=== PATIENT | female | born 1960 | race Hispanic/Latino ===

== ENCOUNTER 2017-07-05 20:21 | Emergency (ER) | payer OTHER ==
[2017-07-05 22:27] LABS: HEMATOCRIT 40.5 % (36-48); LYMPHOCYTES % (AUTO) 17.3 % (21.0-51.0); MEAN CORPUSCULAR HGB CONC 34.5 g/dL (32.0-36.0); MEAN CORPUSCULAR VOLUME 87.1 fL (79-99); MONOCYTES % (AUTO) 6.3 % (3.0-13.0); NEUTROPHILS % (AUTO) 72.4 % (40.0-77.0); NUCLEATED RED BLOOD CELLS 0.1 % (0.0-0.19); PLATELET COUNT (AUTO) 227 K/uL (130-400); RED BLOOD CELL COUNT(AUTO) 4.65 MIL/uL (4.00-5.50); RED CELL DISTRIBUTION WIDTH 14.5 % (11.0-15.5)
[2017-07-05 22:34] LABS: CREATININE 0.7 mg/dL (0.5-1.5); POTASSIUM 3.7 mmol/L (3.5-5.1)
[2017-07-05 22:44] LABS: APPEARANCE,URINE CLEAR (CLEAR); COLOR,URINE YELLOW (YELLOW)
[2017-07-05 22:46] LABS: BILIRUBIN,URINE NEGATIVE (NEGATIVE); GLUCOSE, URINE (UA) NEGATIVE (NEGATIVE); KETONES,URINE NEGATIVE (NEGATIVE); LEUKOCYTE ESTERASE ,URINE NEGATIVE (NEGATIVE); NITRATE,URINE NEGATIVE (NEGATIVE); OCCULT BLOOD,URINE NEGATIVE (NEGATIVE); PH,URINE 6.5 (5.0-8.0); PROTEIN,URINE NEGATIVE (NEGATIVE); UROBILINOGEN,URINE 0.2 mg/dL (0.2-1.0)
[2017-07-05 22:48] LABS: CREATINE KINASE MB 0.6 ng/mL (0.5-3.6)
[2017-07-05] MEDS ORDERED: KETOROLAC TROMETHAMINE 30MG/ML ONE (23:08)
== END 2017-07-05 23:57 | disposition home or self-care (01) ==
LOC: EDH 20:21
DX: S20.219A Contusion of unspecified front wall of thorax, initial encounter (principal); J45.909 Unspecified asthma, uncomplicated; M19.90 Unspecified osteoarthritis, unspecified site; I10 Essential (primary) hypertension; Z88.8 Allergy status to other drugs, medicaments and biological substances; Z98.51 Tubal ligation status; Z90.710 Acquired absence of both cervix and uterus; Z98.890 Other specified postprocedural states; V49.49XA Driver injured in collision with other motor vehicles in traffic accident, initial encounter; Y93.89 Activity, other specified; Y92.89 Other specified places as the place of occurrence of the external cause; Y99.8 Other external cause status
CPT/HCPCS: 36415; 71046; 80048; 81003; 82550; 82553; 84484; 85025; 93005; 96374; 99285; J1885

== ENCOUNTER → 2018-10-12 | Outpatient (CLI) | payer OTHER | END | disposition home or self-care (01) | LOC: RAH 11:01 | PROVIDERS: ATTEND Family Medicine | DX: M16.12 Unilateral primary osteoarthritis, left hip (principal) | CPT/HCPCS: 73521 ==

== ENCOUNTER → 2022-08-22 | Outpatient (CLI) | payer OTHER | END | disposition home or self-care (01) | LOC: RAH 13:32 | PROVIDERS: ATTEND Internal Medicine Cardiovascular Disease | DX: I08.2 Rheumatic disorders of both aortic and tricuspid valves (principal); I10 Essential (primary) hypertension; E11.319 Type 2 diabetes mellitus with unspecified diabetic retinopathy without macular edema | CPT/HCPCS: 93306 ==

== ENCOUNTER → 2022-09-18 | Outpatient (CLI) | payer OTHER ==
[~2022-09-18] MED LIST: REGADENOSON 0.4 MG/5 ML PF SYG IVP SCH
== END | disposition home or self-care (01) ==
LOC: RAH 08:54
PROVIDERS: ATTEND Internal Medicine Cardiovascular Disease
DX: I10 Essential (primary) hypertension (principal); R06.02 Shortness of breath; E11.319 Type 2 diabetes mellitus with unspecified diabetic retinopathy without macular edema
CPT/HCPCS: 78452; 96374; 93017; J2785; A9500 ×2

== ENCOUNTER → 2022-10-13 | Outpatient (CLI) | payer OTHER ==
[~2022-10-13] VITALS: Ht 162.6 cm; Wt 93.3 kg
[~2022-10-13] MED LIST changes: +ALEN70TA80 PO; +AMIT25TA9 PO; +ATOR10TA69 PO; +CELE-84 PO; +FISH1CAP20 PO; +FOLI1 PO; +GLUC-172 PO; +LEVO5TAB13 PO; +LOSA100T59 PO; +METF-444 PO; +METH2.5T6 PO; +METO-391 PO; -REGADENOSON 0.4 MG/5 ML PF SYG IVP SCH
[2022-10-13 10:10] LABS: BASOPHILS % (AUTO) 0.6 % (0.0-5.0); EOSINOPHILS % (AUTO) 3.2 % (0.0-8.0); HEMATOCRIT 40.2 % (36-48); LYMPHOCYTES % (AUTO) 23.6 % (21.0-51.0); MEAN CORPUSCULAR HEMOGLOBIN 29.6 pg (27.0-33.0); MEAN CORPUSCULAR HGB CONC 32.6 g/dL (32.0-36.0); MONOCYTES % (AUTO) 10.6 % (3.0-13.0); NEUTROPHILS % (AUTO) 61.7 % (40.0-77.0); PLATELET COUNT (AUTO) 214 K/uL (130-400); RED BLOOD CELL COUNT(AUTO) 4.42 MIL/uL (4.00-5.50); RED CELL DISTRIBUTION WIDTH 13.9 % (11.0-15.5); WHITE BLOOD COUNT (AUTO) 6.2 K/uL (4.8-10.8)
[2022-10-13 10:12] LABS: APPEARANCE,URINE CLOUDY (CLEAR); BILIRUBIN,URINE NEGATIVE (NEGATIVE); COLOR,URINE YELLOW (YELLOW); GLUCOSE, URINE (UA) NEGATIVE (NEGATIVE); KETONES,URINE NEGATIVE (NEGATIVE); LEUKOCYTE ESTERASE ,URINE 500 Leu/uL (NEGATIVE); NITRATE,URINE NEGATIVE (NEGATIVE); OCCULT BLOOD,URINE NEGATIVE (NEGATIVE); PH,URINE 7.5 (5.0-8.0); PROTEIN,URINE 20 mg/dL (NEGATIVE); UROBILINOGEN,URINE 0.2 mg/dL (0.2-1.0)
[2022-10-13 10:27] LABS: INR 0.94 (0.85-1.15); PROTHROMBIN TIME 10.9 SEC (9.6-11.6)
[2022-10-13 10:28] LABS: BACTERIA,URINE FEW /HPF (None Seen); MUCUS,URINE RARE LPF (None Seen); PARTIAL THROMBOPLASTIN TIME 26.9 SEC (26.3-35.5); SQUAMOUS EPITHELIAL CELL,UR FEW /HPF (0-2); TRANSITIONAL EPI CELLS,URINE FEW /HPF (None Seen); WBC,URINE TNTC /HPF (0-1)
[2022-10-13 10:31] LABS: ALBUMIN 3.7 g/dL (3.5-5.0); CREATININE 0.9 mg/dL (0.5-1.5); CRP QUANTITATIVE 21.5 mg/L (0.00-9.0)
[2022-10-13 10:55] VITALS: BP 143/69; PULSE 74; RESP 19
== END | disposition home or self-care (01) ==
LOC: DAH 10:00 → EDSTATUS 17:00
PROVIDERS: ATTEND Student in an Organized Health Care Education/Training Program
DX: Z01.818 Encounter for other preprocedural examination (principal); Z20.822 Contact with and (suspected) exposure to COVID-19; M16.7 Other unilateral secondary osteoarthritis of hip; M25.551 Pain in right hip; M06.9 Rheumatoid arthritis, unspecified; R26.89 Other abnormalities of gait and mobility; Z79.01 Long term (current) use of anticoagulants; Z79.899 Other long term (current) drug therapy
CPT/HCPCS: 36415; 80048; 81001; 82040; 84134; 85025; 85610; 85730; 86140; 87088; 87426; 87641

== ENCOUNTER 2022-11-26 07:59 | Observation (INO) | payer OTHER ==
[2022-11-21 09:56] LABS: BASOPHILS # (AUTO) 0.06 K/uL (0.00-0.20); BASOPHILS % (AUTO) 0.7 % (0.0-5.0); EOSINOPHILS # (AUTO) 0.04 K/uL (0.00-0.70); EOSINOPHILS % (AUTO) 0.5 % (0.0-8.0); HEMATOCRIT 40.5 % (36-48); IMMATURE GRANULOCYTE ABSOLUTE 0.02 K/uL (0-1); LYMPHOCYTES # (AUTO) 2.5 K/uL (1.0-4.8); LYMPHOCYTES % (AUTO) 29.4 % (21.0-51.0); MEAN CORPUSCULAR HEMOGLOBIN 29.5 pg (27.0-33.0); MEAN CORPUSCULAR HGB CONC 31.9 g/dL (32.0-36.0); MEAN CORPUSCULAR VOLUME 92.5 fL (79-99); MONOCYTES # (AUTO) 0.5 K/uL (0.1-1.0); MONOCYTES % (AUTO) 6.2 % (3.0-13.0); NEUTROPHILS # (AUTO) 5.4 K/uL (1.8-7.7); PLATELET COUNT (AUTO) 251 K/uL (130-400); RED BLOOD CELL COUNT(AUTO) 4.38 MIL/uL (4.00-5.50); RED CELL DISTRIBUTION WIDTH 14.2 % (11.0-15.5); WHITE BLOOD COUNT (AUTO) 8.5 K/uL (4.8-10.8)
[2022-11-21 10:04] LABS: APPEARANCE,URINE CLEAR (CLEAR); BILIRUBIN,URINE NEGATIVE (NEGATIVE); COLOR,URINE COLORLESS (YELLOW); GLUCOSE, URINE (UA) NEGATIVE (NEGATIVE); KETONES,URINE NEGATIVE (NEGATIVE); LEUKOCYTE ESTERASE ,URINE 500 Leu/uL (NEGATIVE); NITRATE,URINE NEGATIVE (NEGATIVE); OCCULT BLOOD,URINE NEGATIVE (NEGATIVE); PH,URINE 6.5 (5.0-8.0); PROTEIN,URINE NEGATIVE (NEGATIVE); UROBILINOGEN,URINE 0.2 mg/dL (0.2-1.0)
[2022-11-21 10:08] LABS: INR 0.94 (0.85-1.15); PROTHROMBIN TIME 10.9 SEC (9.6-11.6)
[2022-11-21 10:09] LABS: PARTIAL THROMBOPLASTIN TIME 27.7 SEC (26.3-35.5)
[2022-11-21 10:22] VITALS: BP 155/73; PULSE 83; RESP 16
[2022-11-21 10:28] LABS: ADD UA MICROSCOPIC YES
[2022-11-21 10:32] LABS: BACTERIA,URINE RARE /HPF (None Seen); MUCUS,URINE RARE LPF (None Seen); OTHER CASTS, URINE 1 /LPF (None Seen); RBC,URINE 0-1 /HPF (0-1); SQUAMOUS EPITHELIAL CELL,UR RARE /HPF (0-2); TRANSITIONAL EPI CELLS,URINE RARE /HPF (None Seen); WBC,URINE 26-50 /HPF (0-1)
[2022-11-21 10:37] LABS: ALBUMIN 3.6 g/dL (3.5-5.0); CARBON DIOXIDE 30 mmol/L (21-32); CHLORIDE 102 mmol/L (101-111); CREATININE 0.8 mg/dL (0.5-1.5); GLOMERULAR FILTR. RATE CALC 84 mL/min (>90); GLUCOSE,RANDOM 102 mg/dL (70-105); POTASSIUM 4.1 mmol/L (3.5-5.1); SODIUM SERUM 138 mmol/L (136-145); UREA NITROGEN, BLOOD 16 mg/dL (7-18)
[2022-11-21 10:39] LABS: CRP QUANTITATIVE < 0.29 mg/L (0.00-9.0)
[~2022-11-26] VITALS: Ht 162.6 cm; Wt 91.6 kg
[2022-11-26] VITALS (31 sets, daily range): BP systolic 57–153; BP diastolic 24–89; PULSE 56–108; RESP 12–20; O2SAT 95–98
[~2022-11-26 07:59] MED LIST changes: +BIOT5000 PO; +CELE-125 PO; -CELE-84 PO; +GLUT500C7 PO; -LEVO5TAB13 PO; +MILK THISTLE PO; +MULT-952 PO; +SUPER B COMPLEX PO; +TURM500C13 PO; +VITA-395 PO; +[UNRECOGNIZED DRUG - OTHER] PO
[2022-11-26] MEDS ORDERED: 0.9%NACL 1000ML 1,000 ML IV ONE (08:28)
[2022-11-26] MEDS ORDERED: CEFAZOLIN SODIUM 2 GM VIAL ONE (08:28)
[2022-11-26] MEDS ORDERED: LIDOCAINE PF 100MG/5ML (2%) SYRINGE 5ML ONE (11:26)
[2022-11-26] MEDS ORDERED: PROPOFOL 10 MG/ML 20ML VIAL IV ONE (11:27)
[2022-11-26] MEDS ORDERED: ROCURONIUM 10MG/1ML SYR 10 MG/ML ML ONE (11:27)
[2022-11-26] MEDS ORDERED: MIDAZOLAM HCL 1 MG/ML 2ML VIAL ONE (11:27)
[2022-11-26] MEDS ORDERED: FENTANYL CITRATE PF 50 MCG/1 ML 2ML VIAL ONE ×2 (11:27→12:26)
[2022-11-26] MEDS ORDERED: KETAMINE 50MG/ML SYRINGE 50 MG/ML DISP.SYRIN ONE (11:27)
[2022-11-26] MEDS ORDERED: ROPIVACAINE 0.5% 5MG/ML 30ML IJ ONE (11:31)
[2022-11-26] MEDS ORDERED: CEFAZOLIN SODIUM 2 GM VIAL IVPB ONE (11:41)
[2022-11-26] MEDS ORDERED: TRANEXAMIC ACID 1000MG/10ML IV ONE (11:55)
[2022-11-26] MEDS ORDERED: TRANEXAMIC ACID 1000MG/10ML ONE (12:09)
[2022-11-26] MEDS ORDERED: PHENYLEPHRINE HCL 10 MG/ML 1ML VIAL IV ONE (12:43)
[2022-11-26] MEDS ORDERED: 0.9%NACL 10ML VIAL ONE (12:43)
[2022-11-26] MEDS ORDERED: DiphenhydrAMINE HCL 50 MG/ML VIAL IVP PRN (14:00)
[2022-11-26] MEDS: KETOROLAC 15MG/ML VIAL (15MG/ML) IV SCH ×2 (14:00→18:12)
[2022-11-26] MEDS ORDERED: POTASSIUM CHLORIDE 20MEQ/100ML 100 ML IV PRN (14:00)
[2022-11-26] MEDS ORDERED: FERROUS FUMARATE 324 MG TABLET PO PRN (14:00)
[2022-11-26] MEDS: GABAPENTIN 100 MG CAPSULE PO SCH ×2 (14:00→22:46)
[2022-11-26] MEDS ORDERED: TRAMADOL HCL 50 MG TABLET PO PRN (14:00)
[2022-11-26] MEDS ORDERED: CYCLOBENZAPRINE HCL 10 MG TABLET PO PRN (14:00)
[2022-11-26] MEDS ORDERED: ONDANSETRON 4MG INJ IVP PRN (14:00)
[2022-11-26] MEDS ORDERED: POTASSIUM CHLORIDE 10% ELIXIR 20 MEQ/15 ML UDCUP PO PRN (14:00)
[2022-11-26] MEDS ORDERED: KCL 20 MEQ ERTAB PO PRN (14:00)
[2022-11-26] MEDS ORDERED: CALCIUM CARB 500MG PO PRN (14:00)
[2022-11-26] MEDS ORDERED: ONDANSETRON 4MG INJ ONE (14:26)
[2022-11-26] MEDS ORDERED: MEPERIDINE-PF 25 MG/ML SYG ONE (14:26)
[2022-11-26] MEDS ORDERED: GLYCOPYRROLATE 0.2 MG/ML 5 ML VIAL ONE (15:24)
[2022-11-26] MEDS: CEFAZOLIN SODIUM 1 GM VIAL IVPB SCH (18:15)
[2022-11-26] MEDS: GLUTATHIONE 500 MG PO SCH (21:00)
[2022-11-26] MEDS: TURMERIC PO SCH (21:00)
[2022-11-26] MEDS ORDERED: SUPER B COMPLEX PO SCH (21:00)
[2022-11-26] MEDS: MILK THISTLE 1000 MG PO SCH (21:00)
[2022-11-26] MEDS: [UNRECOGNIZED DRUG - OTHER] PO SCH (21:00)
[2022-11-26] MEDS: [UNRECOGNIZED DRUG - OTHER] PO SCH (21:00)
[2022-11-26] MEDS: Biotin 5,000 MCG PO SCH (21:00)
[2022-11-26] MEDS ORDERED: DOCUSATE SODIUM 100 MG CAP PO SCH (21:00)
[2022-11-26] MEDS: DOCUSATE SODIUM 100 MG CAP PO SCH (22:46)
[2022-11-26] MEDS: METOPROLOL SUCCINATE 50 MG TAB.SR.24H PO SCH (22:47)
[2022-11-27] MEDS: HYDROCODONE/ACETAMINOPHEN 5/325 MG TAB PO PRN ×3 (01:13→20:57)
[2022-11-27] MEDS: CEFAZOLIN SODIUM 1 GM VIAL IVPB SCH (02:42)
[2022-11-27 03:50] LABS: HEMATOCRIT 32.4 % (36-48); MEAN CORPUSCULAR HEMOGLOBIN 29.9 pg (27.0-33.0); MEAN CORPUSCULAR HGB CONC 32.1 g/dL (32.0-36.0); MEAN CORPUSCULAR VOLUME 93.1 fL (79-99); RED BLOOD CELL COUNT(AUTO) 3.48 MIL/uL (4.00-5.50); RED CELL DISTRIBUTION WIDTH 14.6 % (11.0-15.5); WHITE BLOOD COUNT (AUTO) 13.1 K/uL (4.8-10.8)
[2022-11-27 03:59] LABS: CREATININE 0.9 mg/dL (0.5-1.5); POTASSIUM 3.7 mmol/L (3.5-5.1)
[2022-11-27] MEDS ORDERED: ALENDRONATE SODIUM 35 MG TAB PO SCH (06:30)
[2022-11-27] MEDS: KETOROLAC 15MG/ML VIAL (15MG/ML) IV SCH (06:36)
[2022-11-27 08:00] VITALS: BP 126/91; PULSE 114; RESP 20
[2022-11-27] MEDS: VITAMIN B COMPLEX 1 CAPSULE PO SCH (08:18)
[2022-11-27] MEDS: GABAPENTIN 100 MG CAPSULE PO SCH ×3 (08:18→20:56)
[2022-11-27] MEDS: DOCUSATE SODIUM 100 MG CAP PO SCH ×2 (08:18→20:56)
[2022-11-27] MEDS: LOSARTAN 100 MG TABLET PO SCH (08:18)
[2022-11-27] MEDS: METOPROLOL SUCCINATE 50 MG TAB.SR.24H PO SCH ×2 (08:19→20:57)
[2022-11-27] MEDS: ASPIRIN 325MG TAB PO SCH (08:19)
[2022-11-27] MEDS: POLYETHYLENE GLYCOL 3350 17 GM POWD.PACK PO SCH (08:19)
[2022-11-27] MEDS: 0.9%NACL 1000ML 1,000 ML IV SCH ×2 (08:20)
[2022-11-27 08:30] VITALS: O2SAT 95
[2022-11-27] MEDS: METFORMIN HCL 500 MG TABLET PO SCH (11:32)
[2022-11-27] MEDS: FOLIC ACID 1 MG TABLET PO SCH (11:32)
[2022-11-27 12:00] VITALS: BP 108/49; PULSE 89; RESP 18
[2022-11-27] MEDS ORDERED: AMITRIPTYLINE 25 MG TABLET PO SCH (12:00)
[2022-11-27] MEDS ORDERED: ATORVASTATIN 10 MG TABLET PO SCH (12:00)
[2022-11-27 16:00] VITALS: BP 137/65; PULSE 84; RESP 18
[2022-11-27] MEDS: Osteo Bi-Flex Caplet PO SCH (17:00)
[2022-11-27] MEDS: FISH OIL 1000 MG/CAP PO SCH (17:39)
[2022-11-27 19:05] VITALS: O2SAT 98
[2022-11-27 19:30] VITALS: BP 132/72; PULSE 102; RESP 18
[2022-11-27] MEDS: AMITRIPTYLINE 25 MG TABLET PO SCH (20:57)
[2022-11-27] MEDS: ATORVASTATIN 10 MG TABLET PO SCH (20:57)
[2022-11-27] MEDS: [UNRECOGNIZED DRUG - OTHER] PO SCH (21:00)
[2022-11-27] MEDS: MILK THISTLE 1000 MG PO SCH (21:00)
[2022-11-27] MEDS: GLUTATHIONE 500 MG PO SCH (21:00)
[2022-11-27] MEDS: TURMERIC PO SCH (21:00)
[2022-11-27] MEDS: Biotin 5,000 MCG PO SCH (21:00)
[2022-11-27] MEDS: [UNRECOGNIZED DRUG - OTHER] PO SCH (21:00)
[2022-11-28 00:30] VITALS: BP 146/72; PULSE 104; RESP 18
[2022-11-28] MEDS: KETOROLAC 15MG/ML VIAL (15MG/ML) IV PRN ×2 (00:35→10:01)
[2022-11-28 04:00] VITALS: BP 124/62; PULSE 90; RESP 18
[2022-11-28] MEDS: HYDROCODONE/ACETAMINOPHEN 5/325 MG TAB PO PRN ×2 (06:32→17:51)
[2022-11-28 08:00] VITALS: BP 134/57; PULSE 103; RESP 20
[2022-11-28] MEDS: ASPIRIN 325MG TAB PO SCH (10:01)
[2022-11-28] MEDS: DOCUSATE SODIUM 100 MG CAP PO SCH (10:01)
[2022-11-28] MEDS: VITAMIN B COMPLEX 1 CAPSULE PO SCH (10:01)
[2022-11-28] MEDS: GABAPENTIN 100 MG CAPSULE PO SCH (10:02)
[2022-11-28] MEDS: METOPROLOL SUCCINATE 50 MG TAB.SR.24H PO SCH (10:02)
[2022-11-28] MEDS: LOSARTAN 100 MG TABLET PO SCH (10:02)
[2022-11-28] MEDS: POLYETHYLENE GLYCOL 3350 17 GM POWD.PACK PO SCH (10:02)
[2022-11-28 11:30] VITALS: BP 94/37; PULSE 89; RESP 18
[2022-11-28 12:00] VITALS: BP 108/67; PULSE 112
[2022-11-28] MEDS: AMITRIPTYLINE 25 MG TABLET PO SCH (12:52)
[2022-11-28] MEDS: FOLIC ACID 1 MG TABLET PO SCH (12:54)
[2022-11-28] MEDS: ATORVASTATIN 10 MG TABLET PO SCH (12:55)
[2022-11-28] MEDS: METFORMIN HCL 500 MG TABLET PO SCH (12:55)
[2022-11-28 16:00] VITALS: BP 131/49; PULSE 94; RESP 18
[2022-11-28] MEDS ORDERED: CYCL-309 PO (16:58)
[2022-11-28] MEDS ORDERED: DOCU-116 PO (16:58)
[2022-11-28] MEDS ORDERED: ASPI-1026 PO (16:58)
[2022-11-28] MEDS ORDERED: HYDR-4060 PO (16:58)
[2022-11-28] MEDS: Osteo Bi-Flex Caplet PO SCH (17:00)
[2022-11-28] MEDS: FISH OIL 1000 MG/CAP PO SCH ×2 (17:00→17:30)
[2022-11-29] MEDS ORDERED: BISACODYL 10 MG SUPP.RECT RC PRN (14:00)
[2022-12-03] MEDS ORDERED: NON-FORMULARY MEDICATION 1 EACH (Alendronate Sodium 70 MG) PO SCH (09:00)
[2022-12-03] MEDS ORDERED: METHOTREXATE SODIUM 2.5 MG TABLET PO SCH (09:00)
== END 2022-11-28 19:10 | disposition home health service (06) ==
LOC: DAH 07:59 → DAHIP 08:00 → DAH 08:00 → 4BH 16:20
PROVIDERS: ADMIT Student in an Organized Health Care Education/Training Program; ATTEND Student in an Organized Health Care Education/Training Program
DX: M16.11 Unilateral primary osteoarthritis, right hip (principal); M06.851 Other specified rheumatoid arthritis, right hip; D62 Acute posthemorrhagic anemia; E78.00 Pure hypercholesterolemia, unspecified; I10 Essential (primary) hypertension; E66.09 Other obesity due to excess calories; J45.909 Unspecified asthma, uncomplicated; K21.9 Gastro-esophageal reflux disease without esophagitis; E10.9 Type 1 diabetes mellitus without complications; Z79.899 Other long term (current) drug therapy; Z68.34 Body mass index [BMI] 34.0-34.9, adult
CPT/HCPCS: 36415; 73502; 73503; 80048; 81001; 82040; 82948; 84134; 85025; 85027; 85610; 85730; 86140; 87088; 87641; 96365; 96366; 96375; 96376; 97039; C1776; G0378; J0690; J1885; J2001; J2175; J2250; J2371; J2405; J2704; J2795; J3010; J3490; J7030; A4215; A4221; A4222; A4223; A4649; A4663; A4930; A5120; A6255; G0168